=== PATIENT | female | born 1970 | race Caucasian/White ===

== ENCOUNTER 2017-05-18 21:23 | Emergency (ER) | payer BC ==
[~2017-05-18] VITALS: Ht 149.9 cm; Wt 48.1 kg
[2017-05-18 22:58] VITALS: BP 150/80
== END 2017-05-18 22:57 | disposition home or self-care (01) ==
LOC: FSED 21:23
DX: R07.89 Other chest pain (principal); M94.0 Chondrocostal junction syndrome [Tietze]
CPT/HCPCS: 71046; 80053; 82553; 84484; 85025; 93005; 99283